=== PATIENT | male | born 1970 | race Caucasian/White ===

== ENCOUNTER 2016-12-13 18:45 | Inpatient (IN) ==
[2016-12-13 19:23] LABS: URINE SOURCE CATH
[2016-12-13 19:25] LABS: MANUAL DIFF NEEDED? NO
[2016-12-13 19:30] LABS: BASO% 0.3 % (0.0-0.8); EOS# 0.14 X1000 (0.0-0.7); EOS% 0.9 % (0.0-10.0); HEMATOCRIT 34.7 % (42.0-52.0); HEMOGLOBIN 11.9 g/dL (14.0-18.0); IMM GRAN# 0.03 X1000 (0.0-0.04); IMM GRAN% 0.2 % (0.0-0.5); LYMPH# 1.66 X1000 (1.2-3.4); LYMPH% 11.1 % (20.5-51.1); MCH 32.3 PG (27-31); MCHC 34.3 g/dL (33-37); MCV 94.3 FL (81-99); MONO# 1.25 X1000 (0.11-0.59); MONO% 8.4 % (1.7-9.3); NEUT% 79.1 % (42.2-75.2); PLT 245 X1000 (130-400); RBC 3.68 XMIL (4.7-6.1)
[2016-12-13 19:34] LABS: BILIRUBIN URINE NEGATIVE (NEGATIVE); BLOOD URINE MODERATE (NEGATIVE); CLARITY CLEAR (CLEAR); COLOR YELLOW; GLUCOSE URINE 100 mg/dL (NEGATIVE); LEUKOCYTES URINE NEGATIVE (NEGATIVE); NITRITE URINE NEGATIVE (NEGATIVE); PROTEIN URINE 100 mg/dL (NEGATIVE); SP GRAVITY URINE >= 1.030
--- NOTE | 2016-12-13 19:39 | PROVIDER DOCUMENTATION ---
[id number] Abuse/Overdose - General Source: patient - History of Present Illness-Drug/Alcohol This episode of drinking or use began:: unsure Severity: reports: mild Psychiatric Complaints: reports: anxiety, depressed <Davion Reece - Last Filed: 12/13/16 19:48> - General Source: patient, EMS <Di Beebe - Last Filed: 12/14/16 21:44> - General Chief Complaint: Altered Mental Status Stated Complaint: AMS Time Seen by Provider: 12/13/16 19:20 Allergies/Adverse Reactions: Allergies Allergy/AdvReac Type Severity Reaction Status Date / Time No Known Allergies Allergy Verified 12/13/16 18:54 Home Medications: Home Medication List Medication Instructions Recorded Confirmed Last Taken Type Clonazepam [Klonopin] 2 mg PO Q12H #6 tab.rapdis 11/15/16 12/13/16 Unknown Rx Dextroamphetamine/Amphetamine 30 mg PO BID 11/15/16 12/13/16 1 Day Ago History [Adderall 30 mg Tablet] Buprenorphine HCl/Naloxone HCl 1 unit SL Q12HR 12/14/16 12/14/16 Unknown History [Buprenorphin-Naloxon 8-2 mg Sl] - History of Present Illness-Drug/Alcohol Nature of Presenting Problem: 46 y/o WM picked up by EMS with pt that has AMS. A friend reports that pt was not acting right with a possible seizure. Pt is alert in the ED but states there is a period of time he does not remember. Friend states pt did meth and ETOH. Pt admits to the ETOH. He states he drank 2 25oz cans of beer and admits to hx of heroin abuse in the past. Pt complains of a headache and cold symptoms. Pt states he suffers from depression and anxiety and ask for something for his anxiety (Davion Reece) Review of Systems - Adult - REVIEW OF SYSTEMS - ADULT Constitutional: denies: chills, fever Eyes: reports: no symptoms reported Ears, Nose, Mouth & Throat: reports: sinus problem Cardiovascular: denies: chest pain, edema Respiratory: reports: cough, shortness of breath Gastrointestinal: reports: no symptoms reported Genitourinary: reports: no symptoms reported Musculoskeletal: reports: no symptoms reported Integumentary: reports: no symptoms reported Neurological: reports: headache/migraines. denies: loss of balance, numbness Psychiatric: reports: no symptoms reported Endocrine: reports: no symptoms reported Hematologic/Lymphatic: reports: no symptoms reported Allergic/Immunologic: reports: no symptoms reported All Other Systems: Reviewed and Negative <Davion Reece - Last Filed: 12/13/16 19:48> Past History - Adult - PAST MEDICAL HISTORY-ADULT Review of Records: reports: Old Records Reviewed, Nursing Assessment Review, Medications Reviewed - SOCIAL HISTORY Smoking: cigarettes Substance Use: alcohol, opiates Living Situation: homeless <Davion Reece - Last Filed: 12/13/16 19:48> - PAST MEDICAL HISTORY-ADULT Gastrointestinal: reports: other (hepatitis C) Psychiatric: reports: anxiety, depression, other (admits to some suicidal thought. currently taking suboxone daily. Out of his clonazepam) - SOCIAL HISTORY Substance Use: amphetamines, benzodiazepines <Di Beebe - Last Filed: 12/14/16 21:44> Physical Exam-General - PHYSICAL EXAM-ADULT Initial Vital Signs Reviewed: Yes - CONSTITUTIONAL General Appearance: alert, no apparent distress - EYES Eyes: PERRL/EOMI, pink conjunctivae - HEAD, EARS, NOSE, MOUTH & THROAT HENMT: moist mucous membranes, normal ENT inspection, TMs normal, pharynx normal , other (dental carries) - NECK Neck: non-tender, full range of motion, supple, normal inspection - RESPIRATORY Respiratory: normal breath sounds (with rales in the bases), no respiratory distress, no accessory muscle use, rales (in bases) - CARDIOVASCULAR Cardiovascular: normal peripheral pulses, regular rate, rhythm, systolic murmur (10/27) - GASTROINTESTINAL (ABDOMEN) Abdominal Exam: normal bowel sounds, non tender, soft - MUSCULOSKELETAL Back Exam: normal inspection, no CVA tenderness, no vertebral tenderness Extremity: normal range of motion, non-tender, normal gait, normal inspection, no pedal edema - SKIN Integumentary: normal color, normal turgor, warm/dry - NEUROLOGIC Neurologic: grossly normal, no motor/sensory deficits - PSYCHIATRIC Psych/Mental Status: normal mood/affect, normal thought content, normal thought process, oriented x 3 <Davion Reece - Last Filed: 12/13/16 19:48> Progress <Davion Reece - Last Filed: 12/13/16 19:48> - EKG 1 Time of EKG reading by physician:: 20:00 EKG Read and Signed by:: Di Beebe Rate: 92 Rhythm: nsr IA Interval: normal Comments: no worrisome findings - XRAY 1 XRAY Study: Chest (patchy increased B infiltrates ? aspiration) - CONSULTS/PCP/HOSPITALIST Notification #1 *Consult/PCP/Hospitalist*: Dr Coronel Time Discussed: 21:00 Consult Disposition: Admit - CHANGE OF SHIFT REPORT (ED Provider) Tentative Impression of Patient: multisubstance use, possible LOC vs seizure, with pneumonia <Di Beebe - Last Filed: 12/14/16 21:44> - PLAN OF CARE/RESULTS Progress/Plan/Lab Results: Laboratory Tests 12/13/16 12/13/16 12/13/16 19:00 19:07 19:07 WBC 14.96 H RBC 3.68 L Hgb 11.9 L Hct 34.7 L MCV 94.3 MCH 32.3 H MCHC 34.3 RDW Std Deviation 12.7 Plt Count 245 MPV 10.0 Immature Gran % (Auto) 0.2 Neut % (Auto) 79.1 H Lymph % (Auto) 11.1 L Grady % (Auto) 8.4 Eos % (Auto) 0.9 Baso % (Auto) 0.3 Immature Gran # (Auto) 0.03 Neut # (Auto) 11.84 H Lymph # (Auto) 1.66 Grady # (Auto) 1.25 H Eos # (Auto) 0.14 Baso # (Auto) 0.04 PT INR PTT (Actin FS) Sodium Potassium Chloride Carbon Dioxide Anion Gap BUN Creatinine Estimated GFR/1.73 m2 BUN/Creatinine Ratio Glucose POC Glucose Calculated Osmolality Calcium Total Bilirubin AST ALT Alkaline Phosphatase Creatine Kinase Creatine Kinase Index CK-MB (CK-2) Troponin T Total Protein Albumin Globulin Albumin/Globulin Ratio Urine Source Urine Color Urine Clarity Urine pH Ur Specific [place] Urine Protein Urine Ketones Urine Blood Urine Nitrite Urine Bilirubin Urine Urobilinogen Urine Microscopic RBC Urine WBC Urine Microscopic WBC Ur Epithelial Cells Urine Bacteria Urine Glucose Urine Opiates Screen NONE DETECTED Ur Oxycodone Screen NONE DETECTED Ur Methadone, Qual NONE DETECTED Ur Barbiturates Screen NONE DETECTED Ur Phencyclidine Scrn NONE DETECTED Ur Amphetamines Screen PRESUMPTIVE POSITIVE A U Benzodiazepines Scrn PRESUMPTIVE POSITIVE A Urine Cocaine Screen PRESUMPTIVE POSITIVE A U Cannabinoids Screen NONE DETECTED Plasma/Serum Ethyl Alc 137 H 12/13/16 12/13/16 12/13/16 19:07 19:07 19:07 WBC RBC Hgb Hct MCV MCH MCHC RDW Std Deviation Plt Count MPV Immature Gran % (Auto) Neut % (Auto) Lymph % (Auto) Grady % (Auto) Eos % (Auto) Baso % (Auto) Immature Gran # (Auto) Neut # (Auto) Lymph # (Auto) Grady # (Auto) Eos # (Auto) Baso # (Auto) PT 10.9 INR 1.03 PTT (Actin FS) 38.1 H Sodium 137 Potassium 3.5 Chloride 95 L Carbon Dioxide 26 Anion Gap 16 BUN 10 Creatinine 0.8 Estimated GFR/1.73 m2 > 60 BUN/Creatinine Ratio 13 Glucose 134 H POC Glucose Calculated Osmolality 275 Calcium 8.2 L Total Bilirubin 0.53 AST 58 H ALT 21 Alkaline Phosphatase 103 Creatine Kinase 2297 H Creatine Kinase Index 0.5 CK-MB (CK-2) 10.56 H Troponin T < 0.010 Total Protein 7.0 Albumin 3.7 Globulin 3.3 Albumin/Globulin Ratio 1.1 Urine Source Urine Color Urine Clarity Urine pH Ur Specific [place] Urine Protein Urine Ketones Urine Blood Urine Nitrite Urine Bilirubin Urine Urobilinogen Urine Microscopic RBC Urine WBC Urine Microscopic WBC Ur Epithelial Cells Urine Bacteria Urine Glucose Urine Opiates Screen Ur Oxycodone Screen Ur Methadone, Qual Ur Barbiturates Screen Ur Phencyclidine Scrn Ur Amphetamines Screen U Benzodiazepines Scrn Urine Cocaine Screen U Cannabinoids Screen Plasma/Serum Ethyl Alc 12/13/16 12/13/16 19:13 19:22 WBC RBC Hgb Hct MCV MCH MCHC RDW Std Deviation Plt Count MPV Immature Gran % (Auto) Neut % (Auto) Lymph % (Auto) Grady % (Auto) Eos % (Auto) Baso % (Auto) Immature Gran # (Auto) Neut # (Auto) Lymph # (Auto) Grady # (Auto) Eos # (Auto) Baso # (Auto) PT INR PTT (Actin FS) Sodium Potassium Chloride Carbon Dioxide Anion Gap BUN Creatinine Estimated GFR/1.73 m2 BUN/Creatinine Ratio Glucose POC Glucose 130 H Calculated Osmolality Calcium Total Bilirubin AST ALT Alkaline Phosphatase Creatine Kinase Creatine Kinase Index CK-MB (CK-2) Troponin T Total Protein Albumin Globulin Albumin/Globulin Ratio Urine Source CATH Urine Color YELLOW Urine Clarity CLEAR Urine pH 6.0 Ur Specific [place] >= 1.030 Urine Protein 100 A Urine Ketones TRACE A Urine Blood MODERATE A Urine Nitrite NEGATIVE Urine Bilirubin NEGATIVE Urine Urobilinogen 2.0 H Urine Microscopic RBC 10-20 A Urine WBC NEGATIVE Urine Microscopic WBC <10 Ur Epithelial Cells <10 Urine Bacteria NEGATIVE Urine Glucose 100 A Urine Opiates Screen Ur Oxycodone Screen Ur Methadone, Qual Ur Barbiturates Screen Ur Phencyclidine Scrn Ur Amphetamines Screen U Benzodiazepines Scrn Urine Cocaine Screen U Cannabinoids Screen Plasma/Serum Ethyl Alc Laboratory Tests 12/13/16 12/13/16 12/13/16 19:00 19:07 19:07 WBC 14.96 H RBC 3.68 L Hgb 11.9 L Hct 34.7 L MCV 94.3 MCH 32.3 H MCHC 34.3 RDW Std Deviation 12.7 Plt Count 245 MPV 10.0 Immature Gran % (Auto) 0.2 Neut % (Auto) 79.1 H Lymph % (Auto) 11.1 L Grady % (Auto) 8.4 Eos % (Auto) 0.9 Baso % (Auto) 0.3 Immature Gran # (Auto) 0.03 Neut # (Auto) 11.84 H Lymph # (Auto) 1.66 Grady # (Auto) 1.25 H Eos # (Auto) 0.14 Baso # (Auto) 0.04 PT INR PTT (Actin FS) Sodium Potassium Chloride Carbon Dioxide Anion Gap BUN Creatinine Estimated GFR/1.73 m2 BUN/Creatinine Ratio Glucose POC Glucose Calculated Osmolality Calcium Total Bilirubin AST ALT Alkaline Phosphatase Creatine Kinase Creatine Kinase Index CK-MB (CK-2) Troponin T Total Protein Albumin Globulin Albumin/Globulin Ratio Urine Source Urine Color Urine Clarity Urine pH Ur Specific [place] Urine Protein Urine Ketones Urine Blood Urine Nitrite Urine Bilirubin Urine Urobilinogen Urine Microscopic RBC Urine WBC Urine Microscopic WBC Ur Epithelial Cells Urine Bacteria Urine Glucose Urine Opiates Screen NONE DETECTED Ur Oxycodone Screen NONE DETECTED Ur Methadone, Qual NONE DETECTED Ur Barbiturates Screen NONE DETECTED Ur Phencyclidine Scrn NONE DETECTED Ur Amphetamines Screen PRESUMPTIVE POSITIVE A U Benzodiazepines Scrn PRESUMPTIVE POSITIVE A Urine Cocaine Screen PRESUMPTIVE POSITIVE A U Cannabinoids Screen NONE DETECTED Plasma/Serum Ethyl Alc 137 H 12/13/16 12/13/16 12/13/16 19:07 19:07 19:07 WBC RBC Hgb Hct MCV MCH MCHC RDW Std Deviation Plt Count MPV Immature Gran % (Auto) Neut % (Auto) Lymph % (Auto) Grady % (Auto) Eos % (Auto) Baso % (Auto) Immature Gran # (Auto) Neut # (Auto) Lymph # (Auto) Grady # (Auto) Eos # (Auto) Baso # (Auto) PT 10.9 INR 1.03 PTT (Actin FS) 38.1 H Sodium 137 Potassium 3.5 Chloride 95 L Carbon Dioxide 26 Anion Gap 16 BUN 10 Creatinine 0.8 Estimated GFR/1.73 m2 > 60 BUN/Creatinine Ratio 13 Glucose 134 H POC Glucose Calculated Osmolality 275 Calcium 8.2 L Total Bilirubin 0.53 AST 58 H ALT 21 Alkaline Phosphatase 103 Creatine Kinase 2297 H Creatine Kinase Index 0.5 CK-MB (CK-2) 10.56 H Troponin T < 0.010 Total Protein 7.0 Albumin 3.7 Globulin 3.3 Albumin/Globulin Ratio 1.1 Urine Source Urine Color Urine Clarity Urine pH Ur Specific [place] Urine Protein Urine Ketones Urine Blood Urine Nitrite Urine Bilirubin Urine Urobilinogen Urine Microscopic RBC Urine WBC Urine Microscopic WBC Ur Epithelial Cells Urine Bacteria Urine Glucose Urine Opiates Screen Ur Oxycodone Screen Ur Methadone, Qual Ur Barbiturates Screen Ur Phencyclidine Scrn Ur Amphetamines Screen U Benzodiazepines Scrn Urine Cocaine Screen U Cannabinoids Screen Plasma/Serum Ethyl Alc 12/13/16 12/13/16 19:13 19:22 WBC RBC Hgb Hct MCV MCH MCHC RDW Std Deviation Plt Count MPV Immature Gran % (Auto) Neut % (Auto) Lymph % (Auto) Grady % (Auto) Eos % (Auto) Baso % (Auto) Immature Gran # (Auto) Neut # (Auto) Lymph # (Auto) Grady # (Auto) Eos # (Auto) Baso # (Auto) PT INR PTT (Actin FS) Sodium Potassium Chloride Carbon Dioxide Anion Gap BUN Creatinine Estimated GFR/1.73 m2 BUN/Creatinine Ratio Glucose POC Glucose 130 H Calculated Osmolality Calcium Total Bilirubin AST ALT Alkaline Phosphatase Creatine Kinase Creatine Kinase Index CK-MB (CK-2) Troponin T Total Protein Albumin Globulin Albumin/Globulin Ratio Urine Source CATH Urine Color YELLOW Urine Clarity CLEAR Urine pH 6.0 Ur Specific [place] >= 1.030 Urine Protein 100 A Urine Ketones TRACE A Urine Blood MODERATE A Urine Nitrite NEGATIVE Urine Bilirubin NEGATIVE Urine Urobilinogen 2.0 H Urine Microscopic RBC 10-20 A Urine WBC NEGATIVE Urine Microscopic WBC <10 Ur Epithelial Cells <10 Urine Bacteria NEGATIVE Urine Glucose 100 A Urine Opiates Screen Ur Oxycodone Screen Ur Methadone, Qual Ur Barbiturates Screen Ur Phencyclidine Scrn Ur Amphetamines Screen U Benzodiazepines Scrn Urine Cocaine Screen U Cannabinoids Screen Plasma/Serum Ethyl Alc Laboratory Tests 12/13/16 12/13/16 12/13/16 19:00 19:07 19:07 WBC 14.96 H RBC 3.68 L Hgb 11.9 L Hct 34.7 L MCV 94.3 MCH 32.3 H MCHC 34.3 RDW Std Deviation 12.7 Plt Count 245 MPV 10.0 Immature Gran % (Auto) 0.2 Neut % (Auto) 79.1 H Lymph % (Auto) 11.1 L Grady % (Auto) 8.4 Eos % (Auto) 0.9 Baso % (Auto) 0.3 Immature Gran # (Auto) 0.03 Neut # (Auto) 11.84 H Lymph # (Auto) 1.66 Grady # (Auto) 1.25 H Eos # (Auto) 0.14 Baso # (Auto) 0.04 PT INR PTT (Actin FS) Sodium Potassium Chloride Carbon Dioxide Anion Gap BUN Creatinine Estimated GFR/1.73 m2 BUN/Creatinine Ratio Glucose POC Glucose Calculated Osmolality Calcium Total Bilirubin AST ALT Alkaline Phosphatase Creatine Kinase Creatine Kinase Index CK-MB (CK-2) Troponin T Total Protein Albumin Globulin Albumin/Globulin Ratio Urine Source Urine Color Urine Clarity Urine pH Ur Specific [place] Urine Protein Urine Ketones Urine Blood Urine Nitrite Urine Bilirubin Urine Urobilinogen Urine Microscopic RBC Urine WBC Urine Microscopic WBC Ur Epithelial Cells Urine Bacteria Urine Glucose Urine Opiates Screen NONE DETECTED Ur Oxycodone Screen NONE DETECTED Ur Methadone, Qual NONE DETECTED Ur Barbiturates Screen NONE DETECTED Ur Phencyclidine Scrn NONE DETECTED Ur Amphetamines Screen PRESUMPTIVE POSITIVE A U Benzodiazepines Scrn PRESUMPTIVE POSITIVE A Urine Cocaine Screen PRESUMPTIVE POSITIVE A U Cannabinoids Screen NONE DETECTED Plasma/Serum Ethyl Alc 137 H 12/13/16 12/13/16 12/13/16 19:07 19:07 19:07 WBC RBC Hgb Hct MCV MCH MCHC RDW Std Deviation Plt Count MPV Immature Gran % (Auto) Neut % (Auto) Lymph % (Auto) Grady % (Auto) Eos % (Auto) Baso % (Auto) Immature Gran # (Auto) Neut # (Auto) Lymph # (Auto) Grady # (Auto) Eos # (Auto) Baso # (Auto) PT 10.9 INR 1.03 PTT (Actin FS) 38.1 H Sodium 137 Potassium 3.5 Chloride 95 L Carbon Dioxide 26 Anion Gap 16 BUN 10 Creatinine 0.8 Estimated GFR/1.73 m2 > 60 BUN/Creatinine Ratio 13 Glucose 134 H POC Glucose Calculated Osmolality 275 Calcium 8.2 L Total Bilirubin 0.53 AST 58 H ALT 21 Alkaline Phosphatase 103 Creatine Kinase 2297 H Creatine Kinase Index 0.5 CK-MB (CK-2) 10.56 H Troponin T < 0.010 Total Protein 7.0 Albumin 3.7 Globulin 3.3 Albumin/Globulin Ratio 1.1 Urine Source Urine Color Urine Clarity Urine pH Ur Specific [place] Urine Protein Urine Ketones Urine Blood Urine Nitrite Urine Bilirubin Urine Urobilinogen Urine Microscopic RBC Urine WBC Urine Microscopic WBC Ur Epithelial Cells Urine Bacteria Urine Glucose Urine Opiates Screen Ur Oxycodone Screen Ur Methadone, Qual Ur Barbiturates Screen Ur Phencyclidine Scrn Ur Amphetamines Screen U Benzodiazepines Scrn Urine Cocaine Screen U Cannabinoids Screen Plasma/Serum Ethyl Alc 12/13/16 12/13/16 19:13 19:22 WBC RBC Hgb Hct MCV MCH MCHC RDW Std Deviation Plt Count MPV Immature Gran % (Auto) Neut % (Auto) Lymph % (Auto) Grady % (Auto) Eos % (Auto) Baso % (Auto) Immature Gran # (Auto) Neut # (Auto) Lymph # (Auto) Grady # (Auto) Eos # (Auto) Baso # (Auto) PT INR PTT (Actin FS) Sodium Potassium Chloride Carbon Dioxide Anion Gap BUN Creatinine Estimated GFR/1.73 m2 BUN/Creatinine Ratio Glucose POC Glucose 130 H Calculated Osmolality Calcium Total Bilirubin AST ALT Alkaline Phosphatase Creatine Kinase Creatine Kinase Index CK-MB (CK-2) Troponin T Total Protein Albumin Globulin Albumin/Globulin Ratio Urine Source CATH Urine Color YELLOW Urine Clarity CLEAR Urine pH 6.0 Ur Specific [place] >= 1.030 Urine Protein 100 A Urine Ketones TRACE A Urine Blood MODERATE A Urine Nitrite NEGATIVE Urine Bilirubin NEGATIVE Urine Urobilinogen 2.0 H Urine Microscopic RBC 10-20 A Urine WBC NEGATIVE Urine Microscopic WBC <10 Ur Epithelial Cells <10 Urine Bacteria NEGATIVE Urine Glucose 100 A Urine Opiates Screen Ur Oxycodone Screen Ur Methadone, Qual Ur Barbiturates Screen Ur Phencyclidine Scrn Ur Amphetamines Screen U Benzodiazepines Scrn Urine Cocaine Screen U Cannabinoids Screen Plasma/Serum Ethyl Alc (Di Beebe) Departure <Davion Reece - Last Filed: 12/13/16 19:48> - Departure Time of Disposition Order: 21:03 Certified Medical Emergency: Emergent <Di Beebe - Last Filed: 12/14/16 21:44> - Departure DIAGNOSIS: Pneumonia, Altered mental status, Substance abuse Disposition: ADMITTED INPATIENT 09 Condition: Fair Attestation - Scribe Verification/Attestation Scribe:: Davion Reece Acting as Scribe for:: Di Beebe Scribe documention review:: This chart was documented by a scribe and accurately reflects the service the provider performed and the decisions made by the provider. <Davion Reece - Last Filed: 12/13/16 19:48> Physician Attestation - Physician Attestation I, the provider, attest to the following statement:: Di Beebe Physician documentation Attestation:: This documentation recorded by the scribe accurately reflects the service I personally performed and the decisions made by me. <Di Beebe - Last Filed: 12/14/16 21:44>
[2016-12-13 19:41] LABS: URINE CULTURE NEEDED? NO; URINE EPITHELIAL CELLS <10 /HPF (<10); URINE WBC <10 /HPF (<10)
[2016-12-13 19:42] LABS: INR 1.03; PROTIME 10.9 Seconds (9.2-11.7); PTT 38.1 Seconds (22.0-36.0)
[2016-12-13 20:11] LABS: UR AMPHETAMINES QUAL PRESUMPTIVE POSITIVE (NONE DETECT); UR BARBITUATES QUAL NONE DETECTED (NONE DETECT); UR BENZODIAZEPIN QUAL PRESUMPTIVE POSITIVE (NONE DETECT); UR CANNABINOIDS QUAL NONE DETECTED (NONE DETECT); UR COCAINE QUAL PRESUMPTIVE POSITIVE (NONE DETECT); UR METHADONE QUAL NONE DETECTED (NONE DETECT); UR OPIATES QUAL NONE DETECTED (NONE DETECT); UR OXYCODONE QUAL NONE DETECTED (NONE DETECT); UR PCP QUAL NONE DETECTED (NONE DETECT)
[2016-12-13 20:11] LABS: AGAP 16; ALBUMIN 3.7 g/dL (3.5-5.0); ALKALINE PHOSPHATASE 103 U/L (32-122); BUN 10 mg/dL (8-22); CALCIUM 8.2 mg/dL (8.8-10.2); CHLORIDE 95 mmol/L (98-107); COSMO 275; GOT 58 U/L (10-34); GPT 21 U/L (10-44); POTASSIUM 3.5 mmol/L (3.5-5.1); SODIUM 137 mmol/L (136-145); TCO2 26 mmol/L (25-35); TOTAL BILIRUBIN 0.53 mg/dL (0.20-1.00)
[2016-12-13 20:17] LABS: CK PROFILE 2297 U/L (24-204)
[2016-12-13 20:42] LABS: CK INDEX 0.5 (0.0-2.5); CK-MB 10.56 ng/mL (0.0-5.0)
[2016-12-13] MEDS ORDERED: ZOSYN 3.375 GM/NS 50 ML IV ONE (20:58)
[2016-12-13] MEDS ORDERED: NS 1,000 ML IV ONE (20:59)
[2016-12-13] MEDS ORDERED: NS 500 ML IV ONE (20:59)
[2016-12-13] MEDS ORDERED: MOTRIN PO ONE (21:39)
--- NOTE | 2016-12-13 22:42 | HISTORY AND PHYSICAL ---
CHIEF COMPLAINT: Altered mental status. HISTORY OF PRESENT ILLNESS: This is a 46-year-old male who has a history of opiate use and abuse, friend reported that he was not acting right and had a possible seizure. The patient was apparently altered on arrival to the emergency room. There was no mention of tonic-clonic type movements. He did not lose his bowel or bladder. The friend of the patient stated that he had done "meth and alcohol". The patient himself states that he took cocaine yesterday and drank some beer today. Again, he has a history of heroin use and abuse. He has home medications that include Suboxone, Klonopin and Adderall as well. At any rate, the patient made a mention of having suicidal thoughts at some point during his examination, and though he states that he does not have a plan or want to harm himself presently, he will be admitted to the ICU for further evaluation and treatment. PAST MEDICAL HISTORY: Questionable hepatitis C. The patient states in his own words that he had hepatitis C, but then it went away. PREVIOUS SURGICAL HISTORY: None. SOCIAL HISTORY: The patient is homeless. He has a history of abusing opiates, including heroine, but he stated he would have abused any opiates. He now takes Suboxone. Also has a history of amphetamine use and abuse, and now reportedly takes Adderall and takes benzodiazepines daily which he has been out of his Klonopin. FAMILY HISTORY: Family history was reviewed with the patient, but he denied any chronic health issues in any first-degree relatives. ALLERGIES: No known drug allergies. MEDICATIONS: 1. Suboxone 2 mg/0.5 mg 1 sublingual q.12. 2. Klonopin 1 mg p.o. q.12. 3. Adderall 30 mg p.o. b.i.d. REVIEW OF SYSTEMS: Fourteen point review of systems conducted with the patient. He denies complaint. Pertinent positives for admission are listed above in the HPI. PHYSICAL EXAMINATION: VITAL SIGNS: Temperature 98.8 degrees, pulse 92, respirations 19, blood pressure 121/61, oxygen saturation 95% on room air. GENERAL: This is an unkempt 46-year-old male lying in the ER stretcher. He is alert and oriented x3. Answers all questions appropriately. HEENT: Head is atraumatic, normocephalic. Pupils equal, round, reactive to light. Extraocular eye movement intact. Sclerae is anicteric. Conjunctivae is pink. Oral mucosa is moist. Poor dentition noted. NECK: Supple. No JVD. No thyromegaly. Trachea is midline. No cervical lymphadenopathy. CARDIAC: Regular rhythm, S1-S2 appreciated. No murmurs, gallops, rubs. LUNGS: Decreased bilaterally. Scattered rhonchi noted throughout the lung ovalle. The patient has nonproductive cough. Symmetrical rise and fall with respirations. ABDOMEN: Soft, nondistended, nontender. Bowel sounds present in all 4 quadrants. Normoactive. No pulsatile mass. No organomegaly. EXTREMITIES: No clubbing, cyanosis, or edema. Pedal pulses 2+ bilaterally. GENITOURINARY: The patient voids, otherwise deferred. NEUROLOGICAL: Alert and oriented x3. Cranial nerves 2-12 appear to be grossly intact. SKIN: Warm, dry, intact. No acute lesions or rash. PSYCHIATRIC: The patient has a somewhat depressed affect. DIAGNOSTIC DATA: Chest x-ray was noted as having pain patchy infiltrates consistent with aspiration. EKG showed normal sinus rhythm with a rate of 92. LABORATORY DATA: WBC 14.96 hemoglobin 11.9, hematocrit 34.7, platelet count 245,000. Coagulase within normal limits. Sodium 137, potassium 3.5, chloride 95, carbon dioxide 26, BUN 10, creatinine 0.8, glucose 134, AST 58, ALT 21, CK 2297. CK-MB 10.56, troponin less than 0.010. Urine 100 glucose, moderate blood with 10-20 microscopic red blood cells. Toxicology screening positive for amphetamines, benzodiazepines and cocaine. Serum alcohol level was 137. ASSESSMENT: 1. Polysubstance abuse. 2. Aspiration pneumonia. 3. Questionable seizure related to polysubstance abuse or benzodiazepine withdrawal. 4. Questionable hepatitis C. 5. Tobacco use and abuse. 6. Suicidal ideation. PLAN: Admit patient to [place] ICU with suicide precautions. Consult [facility] to evaluate patient in a.m. Blood cultures were sent in the emergency room. Zosyn 3.375 g was given IV. We will continue. Normal saline bolus was given in the emergency room. We will continue normal saline at 100 mL an hour. We will send off a hepatitis panel since the patient was questionable about his hepatitis status. Continue patient's Suboxone and Klonopin. We will hold Adderall, recheck laboratory data in a.m. Further recommendations per patient clinical course. Dictated by HUSSEIN Florian for My Coronel MD
[2016-12-14] MEDS ORDERED: ZOFRAN IV PRN (00:32)
[2016-12-14] MEDS: KLONOPIN PO SCH ×2 (00:56→12:37)
[2016-12-14] MEDS: ZOSYN 3.375 GM/NS 50 ML IV SCH ×4 (02:03→20:16)
--- NOTE | 2016-12-14 05:46 | EKG Report ---
Test Performed on : 12/13/2016 7:25:00 PM Test Reason : AMS Blood Pressure : / mmHG Vent. Rate : 092 BPM Atrial Rate : 092 BPM P-R Int : 134 ms QRS Dur : 094 ms QT Int : 372 ms P-R-T Axes : 060 028 054 degrees QTc Int : 460 ms Normal sinus rhythm. Possible Left atrial enlargement Borderline ECG No previous ECGs available Unconfirmed Result
[2016-12-14] MEDS ORDERED: PNEUMOVAX 23 IM ONE (06:02)
[2016-12-14] MEDS ORDERED: FLUZONE QUAD 2016-2017 SYRINGE IM ONE (06:30)
[2016-12-14 06:54] LABS: MANUAL DIFF NEEDED? NO
[2016-12-14 06:59] LABS: BASO% 0.3 % (0.0-0.8); EOS# 0.19 X1000 (0.0-0.7); EOS% 1.6 % (0.0-10.0); HEMATOCRIT 31.4 % (42.0-52.0); HEMOGLOBIN 10.3 g/dL (14.0-18.0); IMM GRAN# 0.02 X1000 (0.0-0.04); IMM GRAN% 0.2 % (0.0-0.5); LYMPH# 1.75 X1000 (1.2-3.4); LYMPH% 15.1 % (20.5-51.1); MCH 31.3 PG (27-31); MCHC 32.8 g/dL (33-37); MCV 95.4 FL (81-99); MONO# 1.38 X1000 (0.11-0.59); MONO% 11.9 % (1.7-9.3); MPV 10.5 FL (7.4-10.4); NEUT% 70.9 % (42.2-75.2); PLT 207 X1000 (130-400); RBC 3.29 XMIL (4.7-6.1)
[2016-12-14 07:18] LABS: AGAP 10; BUN 11 mg/dL (8-22); CALCIUM 8.3 mg/dL (8.8-10.2); CHLORIDE 102 mmol/L (98-107); COSMO 275; POTASSIUM 3.5 mmol/L (3.5-5.1); SODIUM 138 mmol/L (136-145); TCO2 26 mmol/L (25-35)
--- NOTE | 2016-12-14 07:19 | Diag Imaging Result Document ---
PROCEDURE NAME: CHEST-PORTABLE - 12/13/2016 PORTABLE CHEST: COMPARISON: No comparison films. FINDINGS: The lungs are well expanded. The heart is not enlarged. There are increased interstitial markings throughout both lungs. These are most pronounced in the left lower lobe. No pleural effusions identified. IMPRESSION: Bilateral infiltrates most pronounced in the left base. Followup PA and lateral recommended.
[2016-12-14] MEDS: LEVAQUIN PO SCH (08:58)
[2016-12-14] MEDS: SUBOXONE 2 MG/0.5 MG SL SCH ×2 (08:59→20:15)
--- NOTE | 2016-12-14 09:33 | PROGRESS NOTE ---
DATE: 12/14/2016 SUBJECTIVE: The patient without new complaints this morning. He had no additional seizure-type activity overnight. Denies any chest pain or palpitations. Notes that he has been told in the past that his heart rate is low. PHYSICAL EXAMINATION: Vital Signs: Temperature 97, pulse 40-74, respiratory rate 16, blood pressure 99/41 to 114/50, sat 97% on room air. General: Patient is a well-developed male, who is currently in no respiratory distress. Neck: Supple. Cardiovascular: Bradycardia. No murmurs. Chest: Relatively clear. Abdomen: Soft. Extremities: Moves all extremities. ASSESSMENT: 1. Bilateral infiltrates. Continue Zosyn. Will add Levaquin. 2. Questionable seizure. This was unwitnessed. Patient notes that he ran out of his benzos, which certainly could cause a seizure. 3. Chronic opiate abuse. 4. Suicidal ideations. PLAN: We will continue patient in the intensive care unit. Due to his suicidal ideations we will add Levaquin. We will continue his Klonopin and Suboxone. We will continue to follow. Further orders as needed.
[2016-12-14] MEDS ORDERED: TYLENOL PO PRN (19:46)
[2016-12-14] MEDS ORDERED: NS 500 ML IV SCH (22:30)
[2016-12-15] MEDS: KLONOPIN PO SCH ×2 (00:12→14:26)
[2016-12-15] MEDS: ZOSYN 3.375 GM/NS 50 ML IV SCH (03:40)
[2016-12-15] MEDS: LEVAQUIN PO SCH (08:38)
[2016-12-15] MEDS: CLEOCIN PO SCH (08:39)
[2016-12-15] MEDS: SUBOXONE 8 MG/2 MG SL SCH ×2 (08:39→22:18)
[2016-12-15] MEDS ORDERED: SUBOXONE 8 MG/2 MG SL SCH (09:00)
--- NOTE | 2016-12-15 11:34 | DISCHARGE SUMMARY ---
ADMISSION DATE: 12/13/2016 DISCHARGE DATE: 12/15/2016 DISCHARGE DIAGNOSES: 1. Bilateral pneumonia, improved on p.o. Levaquin. 2. Questionable withdrawal seizure. The patient abruptly ran out of his benzodiazepines. He has been stable without any seizure type activity in the hospital. 3. Chronic opiate abuse and Suboxone usage. 4. Chronic benzodiazepine use. 5. Chronic bradycardia. The patient notes that his heart rate is typically 40s to 60s. He states that this has been worked up in the past. CONSULTATIONS: None. PROCEDURES PERFORMED: None. BRIEF HOSPITAL COURSE: The patient is a 46-year-old male who was admitted as noted in the HPI, treated in the usual fashion. It was felt as though he may have had a seizure, although this was unwitnessed. It was felt this was likely secondary to benzodiazepine abrupt withdrawal. Thankfully, he has had an uneventful hospital course. He has had no further symptoms. There is the question of a seizure and question of pneumonia, and therefore he was placed on Levaquin and clindamycin. He will be continued on p.o. antibiotics at home. Prescription was written for Klonopin, as the patient notes that he is out and does not have an appointment until 12/27/2016. The patient apparently takes 1 mg twice a day at home. Prescription for 0.5 mg twice a day was written as well as for his Suboxone to prevent withdrawal until he can follow up with his physician. We will discharge him home also on Levaquin and clindamycin. The patient currently is stable. He is in no respiratory distress. Time spent in discharge planning is 35 minutes.
[2016-12-15 11:54] LABS: HEPATITIS PROFILE ACUTE SEE COMMENTS (())
[2016-12-16] MEDS: KLONOPIN PO SCH (00:31)
[2016-12-16] MEDS: ADDERALL PO SCH ×3 (06:22→07:33)
[2016-12-16 09:01] VITALS: BP 124/48
[2016-12-16] MEDS: SUBOXONE 8 MG/2 MG SL SCH (09:28)
[2016-12-16] MEDS: LEVAQUIN PO SCH (09:29)
[2016-12-16] MEDS: CLEOCIN PO SCH (09:29)
--- NOTE | 2016-12-16 11:11 | PROGRESS NOTE ---
DATE: 12/16/2016 SUBJECTIVE: The patient without any new complaints. OBJECTIVE: Vital Signs Reviewed: He is afebrile. Pulse 47-50, respiratory rate 18, BP 124/48, satting 97% on room air. General: Patient well developed, well nourished. Currently in no respiratory distress. He is awake, alert. Neck: Supple. CV: Bradycardia. No appreciable murmurs. Chest: Clear. Nonlabored. Abdomen: Soft. ASSESSMENT: 1. Bradycardia, chronic. 2. Chronic pain and chronic opiate abuse and use. 3. Chronic benzodiazepine use. 4. Chronic noncompliance. Patient notes he is out of his medications and does not have an appointment until the eighth. I certainly expect that this is the reason he came to the hospital to begin with. DISPOSITION: The patient hopefully will discharge home later today. We will reluctantly write his prescription for Klonopin twice daily, although we will write 0.5 mg instead of 1 mg. We will continue him on Levaquin and clindamycin for the next 5 days. Also, will write a prescription for Suboxone, but will only write enough to allow him to get into his doctor's appointment on the eighth.
== END 2016-12-16 10:20 | disposition home or self-care (01) | DRG 896 ==
LOC: EDBD → ED 18:45 → P.ICU 21:41 → P.MEDSURG 12-14 22:21
PROVIDERS: ATTEND Family Medicine
DX: F13.239 Sedative, hypnotic or anxiolytic dependence with withdrawal, unspecified (principal); J18.9 Pneumonia, unspecified organism; F11.10 Opioid abuse, uncomplicated; R45.851 Suicidal ideations; F32.9 Major depressive disorder, single episode, unspecified; F41.9 Anxiety disorder, unspecified; R00.1 Bradycardia, unspecified; G89.29 Other chronic pain; F17.210 Nicotine dependence, cigarettes, uncomplicated; Z91.128 Patient's intentional underdosing of medication regimen for other reason; Z59.0 Homelessness; Z86.19 Personal history of other infectious and parasitic diseases; Z79.899 Other long term (current) drug therapy
CPT/HCPCS: 36415; 71010; 80048; 80053; 80074; 81001; 82550; 82553; 82948; 83605; 84443; 84484; 85025; 85610; 85730; 87040; 93005; 96361; 96365; G0480; J2543; J7030; J7040; 80320; 80324; 80345; 80346; 80349; 80353; 80358; 80361; 80365; 83992